=== PATIENT | male | born 1955 | race Caucasian/White ===

== ENCOUNTER 2020-11-15 16:51 | Emergency (ER) | payer OTHER, SELFPAY ==
--- NOTE | 2020-11-15 | ECG_ITS ---
Test Reason : HTN Blood Pressure : / mmHG Vent. Rate : 058 BPM Atrial Rate : 058 BPM P-R Int : 124 ms QRS Dur : 102 ms QT Int : 450 ms P-R-T Axes : 079 061 073 degrees QTc Int : 441 ms Sinus bradycardia Possible Left atrial enlargement Borderline ECG No previous ECGs available Referred By: Broderick Casillas Electronically Signed By:CHAY FUENTES MD
--- NOTE | ~2020-11-15 | XR_ITS ---
EXAMINATION: XR CHEST CLINICAL INFORMATION: High blood pressure COMPARISON: None TECHNIQUE: Frontal portable view of the chest was obtained. 8:08 PM FINDINGS: No significant abnormality is noted involving the heart, lungs, mediastinum, bony thorax or soft tissues. XR/XR chest 1V IMPRESSION: Unremarkable examination.
[2020-11-15 17:12] VITALS: BP 236/114; PULSE 71; RESP 16; TEMP 36.4; O2SAT 99; BMI 27.8
--- NOTE | 2020-11-15 19:42 | PC.NURSE ---
PT IN ROOM WITH C/O HIGH B/P AT A PHARMACY AND WAS ADVISED TO COME HERE FOR EVAL. PT RESTING IN STRETCHER. PT DENIES CP/SOB AT THIS TIME. DENIES HEADACHE OR VISUAL DIST. PT AWAITING FOR MD'S EVAL. WILL CONTINUE TO MONITOR PT.
[2020-11-15 19:44] VITALS: BP 192/96; PULSE 60; RESP 16; O2SAT 99
--- NOTE | 2020-11-15 19:56 | ED.GENADULT ---
HPI - General Adult General Chief complaint: General Medical Stated complaint: High Bp Time Seen by Provider: 11/15/20 19:36 Source: patient Mode of arrival: ambulatory Limitations: no limitations History of Present Illness HPI narrative: 65-year-old male walked into the emergency department to check on his high blood pressure, patient went to [facility] today acquiring COVID testing patient asked to check on his blood pressure and found to be very high at the [facility] patient was instructed to come to the emergency department, patient has no symptoms in particular no headache, no blurry vision, no chest pain, no difficulty breathing, no abdominal pain, no nausea or vomiting. Patient do not have a primary doctor and never had a history of high blood pressure in the past. Related Data Allergies Allergy/AdvReac Type Severity Reaction Status Date / Time No Known Allergies Allergy Verified 11/15/20 19:55 Review of Systems Review of Systems: All other systems are reviewed and are negative Constitutional: Reports as per HPI and Reports no additional constitutional complaints Eyes: Reports as per HPI and Reports no additional eye complaints Reports system reviewed and no additional complaints, except as documented Cardiovascular: Reports as per HPI and Reports no additional cardiovascular complaints Respiratory: Reports as per HPI and Reports no additional respiratory complaints Gastrointestinal: Reports as per HPI and Reports no additional gastrointestinal complaints Genitourinary: Reports no additional female genitourinary complaints Musculoskeletal: Reports no additional musculoskeletal complaints Skin/Breast: Reports system reviewed and no additional complaints, except as docu Psychiatric: Reports no additional psychiatric complaints Endocrine: Reports no additional endocrine complaints Hematologic/Lymphatic: Reports no additional hematologic/lymphatic complaints Allergic/Immunologic: Reports no additional allergic/immunologic complaints Reports system reviewed and no additional complaints, except as documented and Reports Abnormal speech present [facility] Social History Social History Advance Directives: No Advance Directives Information Provided: No Physical Exam Vital Signs: Vital Signs: Last Vital Signs Temp 97.5 F 11/15/20 17:12 Pulse 60 11/15/20 19:44 Resp 16 11/15/20 19:44 BP 192/96 H 11/15/20 19:44 Pulse Ox 99 11/15/20 19:44 Body Mass Index 27.8 Vital signs have been reviewed as appeared to be correct. Blood pressure in the high range.. Heart rate normal. Respiration rate normal. Temperature normal. Oxygen saturation normal. Appearance: Alert. Oriented X3. No acute distress. Head: Normal external exam. Normocephalic. Atraumatic. No [place] signs noted. No raccoon eyes noted Eyes: PERRLA. EOMI. Conjunctiva and sclera normal. Eyelids normal. ENT: TM's Normal. Pharynx normal. Uvula midline. Moist mucous membranes. No trismus noted. No drooling noted. No muffled voice noted. Neck: Normal inspection. Neck supple. FROM. No adenopathy. Thyroid Normal. No meningeal signs. No neck mass noted. CVS: Normal heart rate and rhythm. Heart sound normal. No murmurs noted. Pulses normal throughout. Respiratory: No respiratory distress. Painless inspiration. Breath sounds normal. No wheezes/rales/rhonchi noted. Chest nontender. No accessory muscle usage noted or decreased air movement noted. Abdomen: Soft and nontender. Bowel sounds normal in all 4 quadrants. No distention noted. No organomegaly noted. No visible injury noted. Back: No CVA tenderness. Full range of motion noted. Skin: Skin warm and dry. Normal skin color. Normal skin turgor. No rashes/lesions/lacerations noted. Extremities: No lower extremity edema. Extremities exhibit normal range of motion. Extremities nontender. Neuro: Oriented X 3. No motor deficit. No sensory deficit. Reflexes normal. Medical Decision Making ECG Data Interpretation: Normal sinus, bradycardia at 58 beats per minutes, normal axis deviation, normal intervals no ST-T changes.
[2020-11-15 20:14] LABS: MANUAL DIFF FLAG NO
[2020-11-15 20:18] LABS: Basophils Percent Auto 0.5 % (0-2); Eosinophils Absolute Auto 0.2 X10*3/uL (0.0-0.4); Eosinophils Percent Auto 3.5 % (0-4); Hematocrit 44.1 % (42-52); Hemoglobin 15.2 g/dl (14.0-18.0); Imm Gran Abs Auto 0.01 X10*3/uL (0.00-0.03); Imm Gran Pct Auto 0.2 % (0.0-0.4); Lymphocytes Absolute Auto 1.8 X10*3/uL (1.2-4.9); Lymphocytes Percent Auto 30.5 % (20-40); Mean Corpuscular HGB Conc 34.5 g/dl (31.0-36.0); Mean Corpuscular Hemoglobin 29.7 pg (27.0-33.0); Mean Corpuscular Volume 86.1 fL (80-98); Monocytes Absolute Auto 0.4 X10*3/uL (0.1-1.2); Monocytes Percent Auto 5.9 % (2-11); Neutrophils Absolute Auto 3.6 X10*3/uL (2.0-8.3); Neutrophils Percent Auto 59.4 % (45-73); Platelet Count 198 X10*3/uL (160-400); Red Blood Count 5.12 X10*6/uL (4.60-5.80); Red Cell Distribution Width 13.2 % (11.0-16.0)
[2020-11-15 20:28] VITALS: BP 182/106; PULSE 70
[2020-11-15] MEDS: amLODIPine Besylate 5 MG TABLET PO (20:28)
[2020-11-15 20:30] VITALS: BP 182/106; PULSE 70; RESP 16; O2SAT 99
--- NOTE | 2020-11-15 20:40 | PC.NURSE ---
pt medicated for b/p as per emar. awaiigary for pending lab.
[2020-11-15 20:41] LABS: Alanine Aminotransferase 20 U/L (0-40); Albumin Level 4.6 g/dL (3.5-5.0); Alkaline Phosphatase 73 U/L (39-117); Anion Gap 11 (12-20); Aspartate Amino Transferase 23 U/L (5-37); Bilirubin Direct 0.2 mg/dL (0.0-0.5); Bilirubin Total 0.8 mg/dL (0.0-1.0); Blood Urea Nitrogen 18 mg/dL (9-16); Calcium 9.4 mg/dL (8.4-10.2); Carbon Dioxide 27 mmol/L (22-29); Chloride 103 mmol/L (96-108); Creatinine Clr Calc Pharmacy 84.3; Estimated Glomerular Filt Rate > 60; Glucose Random 97 mg/dL (60-115); Lipase 54 U/L (8-78); Potassium 4.3 mmol/L (3.3-5.1); Sodium 137 mmol/L (135-145); Total Protein 7.2 g/dL (6.5-8.0)
[2020-11-15 20:45] LABS: Troponin-I High Sensitivity 5.5 ng/L (<3.5-35.0)
--- NOTE | 2020-11-15 21:58 | PC.NURSE ---
PT STATES IM FEELING BETTER . AWARE
[2020-11-15 22:49] VITALS: BP 167/90; PULSE 75; RESP 16; O2SAT 99
== END 2020-11-15 23:42 | disposition home or self-care (01) ==
PROVIDERS: Emergency Provider Emergency Medicine
DX: R03.0 Elevated blood-pressure reading, without diagnosis of hypertension (principal)
CPT/HCPCS: 36415; 71045; 80048; 80076; 83690; 84484; 85025; 93005; 99283; 99284

== ENCOUNTER 2024-07-03 15:27 | Emergency (ER) | payer MEDICARE, SELFPAY ==
--- NOTE | ~2024-07-03 | XR_ITS ---
EXAMINATION: XR HAND/WRIST, LEFT CLINICAL INFORMATION: Pain COMPARISON: None available. TECHNIQUE: PA, lateral, and oblique views of the left hand and wrist. FINDINGS: There is a comminuted, mildly displaced distal radius fracture with intra-articular extension. There is a displaced ulnar styloid fracture. Soft tissue swelling at the wrist. The alignment in the hand is intact. XR/XR hand wrist LT IMPRESSION: 1. Comminuted, mildly displaced distal radius fracture with intra-articular extension. 2. Displaced ulnar styloid fracture. Electronically signed by: Carlos Gallegos MD 07/03/2024 04:20 PM [facility]
[2024-07-03 15:38] VITALS: BP 151/97; PULSE 75; RESP 18; TEMP 36.9; O2SAT 97; BMI 26.6
--- NOTE | 2024-07-03 15:39 | ED.EXTPRO ---
HPI - Extremity Problem General Chief complaint: Extremity Injury, Upper Stated complaint: LT wrist injury Time Seen by Provider: 07/03/24 17:05 Source: patient and RN notes reviewed Mode of arrival: ambulatory Limitations: no limitations History of Present Illness ED Provider: Sonia Fitzgerald PA-C [facility] Narrative: This is a 69-year-old male, with a history of hypertension, hyperlipidemia, who presents emergency department with complaints of left wrist pain status post mechanical fall today. Patient states that he was hiking and slipped on wet leaves and fell backwards, went to brace himself left arm. He states he immediately had pain in his left wrist. States that he writes with his left hand. He denies hitting his head or LOC. He is not on blood thinners. Denies history of injury to this wrist in the past. He took Tylenol prior to his arrival. No other complaints or concerns at this time. MD Complaint: extremity pain and extremity swelling Location: left and upper extremity Quality: aching Radiation: none Relieving factors: immobilization and medication Exacerbating factors: range of motion Associated symptoms: denies other symptoms Related Data Previous Rx's ?Medication ?Instructions ?Recorded acetaminophen 500 mg tablet 1,000 mg (2 x 500 mg) PO Q6H PRN 07/03/24 (Tylenol Extra Strength) pain #30 tabs ibuprofen 600 mg tablet 600 mg PO Q6H PRN pain #30 tabs 07/03/24 Allergies Allergy/AdvReac Type Severity Reaction Status Date / Time No Known Allergies Allergy Verified 07/03/24 15:41 Review of Systems Review of Systems: Yes all other systems are reviewed and are negative Constitutional: Constitutional: Reports as per [facility] Past Medical History Attestation statement: The following information was validated with the patient. Social History Social History Advance Directives: No Advance Directives Information Provided: Yes Do you have a plan to hurt others: No Plan Physical Exam Vital Signs: Vital Signs: Last Vital Signs Temp 97.2 F 07/03/24 18:26 Pulse 71 07/03/24 18:26 Resp 16 07/03/24 18:26 BP 131/93 H 07/03/24 18:26 Pulse Ox 96 07/03/24 18:26 O2 Del Method Room Air 07/03/24 18:26 BMI result Body Mass Index 26.6 Const: General: cooperative, comfortable and no acute distress Orientation/consciousness: patient oriented x3 Limitations: no limitations HEENT: Head: Yes normal to inspection, Yes normocephalic and Yes atraumatic Ears: hearing grossly normal bilaterally General nose exam: Normal external nose present Face and sinus: Yes normal facial exam Mouth: Normal oral and palatal mucosa present, oropharynx normal and moist mucous membranes Throat: Yes posterior oropharynx normal Eyes: General: appearance normal, both eyes and all related structures Eyelids: Yes eyelids normal Conjunctivae: conjunctivae normal Sclerae: sclerae normal Pupils: Equal, round and reactive pupils present EOM: EOMs intact bilaterally Neck: Neck: Yes normal visual inspection, Yes full ROM and Yes no lymphadenopathy Lymphatic: no lymphadenopathy noted Chest: Chest palpation & inspection: normal inspection of the chest Resp: Effort & Inspection: normal respiratory effort and able to speak in complete sentences Auscultation: clear to auscultation bilaterally, no crackles, no rales, no rhonchi and no wheezes Cardio: Rate: regular rate Rhythm: regular rhythm Heart sounds: S1 normal heart sound present and S2 normal heart sound present GI: Inspection: Yes normal to inspection Skin: General skin exam: no rashes or lesions noted Trauma: no lacerations or abrasions Wounds: no wounds Neuro: General: patient oriented x3 and moves all extremities Cranial nerves: Yes Equal, round and reactive pupils present Extrem: Other: Left wrist with obvious bony deformity noted at the distal radius and ulna. He has tenderness palpation in this region. Unable to supinate and pronate left wrist and hand secondary to pain. Strong radial pulse. General: Yes normal to inspection Right upper extremity: normal to inspection Left upper extremity: normal to inspection Right lower extremity: normal to inspection Left lower extremity: normal to inspection Medications Administered Discontinued Medications Generic Name Dose Route Start Last Admin Trade Name Freq PRN Reason Stop Dose Admin Ibuprofen 600 mg 07/03/24 18:19 07/03/24 18:23 Ibuprofen 600 Mg Tablet PO 07/03/24 18:20 600 mg ONCE ONE Administration Medical Decision Making Medical Decision Making [facility] Narrative: This is a 84-clee-jmm-male, with hx of HTN, HLD, glaucoma, who presents to the ER with complaints of left wrist pain status post mechanical fall which occurred today. Patient reports slip and fall while hiking today. He states that he slipped on wet leaves and fell backwards onto his outstretched left arm. He immediately had pain. He denies hitting his head or LOC. Strong radial pulse. Obvious bony deformity noted at the distal radius and ulna. Pain with movement. X-ray revealing a comminuted, mildly displaced distal radius fracture with intra-articular extension and displaced ulnar styloid fracture. Discussed with Renetta Lucas PA-C. Patient placed in sugar-tong, and shoulder immobilizer. Given strict return precautions. Also discharged on ibuprofen Tylenol. He will follow-up with orthopedics outpatient Differential Diagnosis Differential Diagnoses: The differential diagnosis associated with the presentation includes Fracture, contusion, sprain, strain Admission/Observation Consideration of admission/observation: Escalation of care including admission/observation considered Lab Data MDM Lab Attestation statement: I reviewed the patient's lab results. Radiology Impression Discussion of test interpretation with radiology: I have reviewed the radiologist's reading. Radiologist Impression: XR/XR hand wrist LT IMPRESSION: 1. Comminuted, mildly displaced distal radius fracture with intra-articular extension. 2. Displaced ulnar styloid fracture. Electronically signed by: Carlos Gallegos MD 07/03/2024 04:20 PM [facility] Dictated By: Carlos Gallegos MD External Record Review External record reviewed: Inpatient record, Office record, Outpatient record, Prior outpatient labs, Prior outpatient radiology, Primary care record and Outside ED record Procedures Orthopedic Splinting/Casting Injury #1: Side: left Upper Extremity Injury Location: upper arm Upper Extremity Immobilizer: sling/shoulder immobilizer Discharge Plan Discharge Clinical Impression: Closed fracture distal radius and ulna Patient Disposition: Home, Self-Care Instructions: Wrist Fracture in Adults (ED) Additional Instructions: You were seen in the emergency department after injuring your left wrist. You have a fracture of the radius and ulna in your wrist. We placed you in a splint. Please keep splint dry. Do not remove splint until you are seen by Orthopedics. Call orthopedic tomorrow to make an appointment. Rest and elevate your arm while in the splint. Use the sling for comfort. Remove sling while sleeping. Alternate between ibuprofen and Tylenol as needed for pain. If any new or worsening symptoms occur including but not limited to worsening pain, increased swelling into your fingertips, loss of sensation in your fingertips, please return. Prescriptions: New ibuprofen 600 mg tablet 600 mg PO Q6H PRN (Reason: pain) Qty: 30 0RF acetaminophen [Tylenol Extra Strength] 500 mg tablet 1,000 mg PO Q6H PRN (Reason: pain) Qty: 30 0RF Referrals: [facility] [Provider Group] Interventions: ED Discharge Assessment Last Done: 07/03/24 18:26 Discharge Date/Time: 07/03/24 18:27 Print Language: Gambian
[2024-07-03 16:03] VITALS: BP 138/84; PULSE 78; RESP 16; TEMP 36.4; O2SAT 96
[2024-07-03 17:56] VITALS: BP 131/93; PULSE 71; RESP 16; TEMP 36.2; O2SAT 96
[2024-07-03] MEDS: Ibuprofen 600 MG TABLET PO (18:23)
[2024-07-03 18:26] VITALS: BP 131/93; PULSE 71; RESP 16; TEMP 36.2; O2SAT 96
== END 2024-07-03 18:27 | disposition home or self-care (01) ==
PROVIDERS: Emergency Provider Emergency Medicine; PCP Student in an Organized Health Care Education/Training Program
DX: S52.502A Unspecified fracture of the lower end of left radius, initial encounter for closed fracture (principal); M25.532 Pain in left wrist; W01.0XXA Fall on same level from slipping, tripping and stumbling without subsequent striking against object, initial encounter; Y93.89 Activity, other specified; Y92.89 Other specified places as the place of occurrence of the external cause; Y99.8 Other external cause status
CPT/HCPCS: 29125; 73110; 73130; 99284

== ENCOUNTER 2024-07-05 14:01 | Outpatient (REF) | payer MEDICARE, SELFPAY ==
--- NOTE | ~2024-07-05 | XR_ITS ---
EXAMINATION: XR WRIST, LEFT CLINICAL INFORMATION: Pain in left wrist. COMPARISON: 07/03/2024 left hand. TECHNIQUE: PA, lateral, and oblique views of the left wrist. FINDINGS: Comminuted, mildly displaced, impacted distal radial fracture with intra-articular extension was also demonstrated on left wrist radiographs of 07/03/2024. Redemonstration of displaced ulnar styloid fracture. Soft tissue swelling at the wrist. XR/XR wrist LT min 3V IMPRESSION: Comminuted, mildly displaced, impacted distal radial fracture, with intra-articular extension was also demonstrated on left wrist radiographs of 07/03/2024. Redemonstration of displaced ulnar styloid fracture. Electronically signed by: Melony Greene MD 07/17/2024 09:07 PM [facility]
== END 2024-07-05 14:02 | disposition home or self-care (01) ==
LOC: HO.HOSX 14:01
PROVIDERS: Visit Provider Orthopaedic Surgery
DX: M25.532 Pain in left wrist (principal); S52.502A Unspecified fracture of the lower end of left radius, initial encounter for closed fracture
CPT/HCPCS: 73110; 99202

== ENCOUNTER 2024-07-05 14:20 | Outpatient (AMB) | payer MEDICARE, SELFPAY ==
--- NOTE | 2024-07-05 14:37 | A.OFFVIS_ITS ---
Vital Signs 07/05/24 14:57 Height 5 ft 11 in Weight 190 lb BMI 26.5 Intake Visit Reasons: FC-Wrist Fracture, left Intake Note: Addison is a 69 yo left hand dominant male who presents today for an ED follow up s/p left wrist injury, DOI 07/03/24. Patient denies numbness but reports tingling at the fingertips. Denies finger locking. He is alternating Tylenol and Ibuprofen PRN with pain relief. Patient thinks he had a fracture on his left small finger years ago. Allergies No Known Allergies Allergy (Verified 07/07/24 10:22) HPI HPI FC-Wrist Fracture, left: Details: Addison is a 69 year old right hand dominant man who presents for a left distal radius fracture, S/P fall while hiking, DOI: 07/03/24. He says he is doing well, and his pain is tolerable. He denies numbness and tingling in his fingers. He denies pain about the elbow. COUNTS INCLUDE 234 BEDS AT THE [facility] Medical History Elevated cholesterol HTN (hypertension) Social History Are you a primary infant caregiver to a significant other at home: No Do you presently have visiting nurse or other home services: No Patient Tobacco Use Status: Never used Tobacco Current occupational status: retired Current occupation: left handed Review of Systems Const All systems reviewed & are unremarkable except as noted in HPI and below Physical Exam Vital Signs: BMI result Body Mass Index 26.5 Const General: cooperative, healthy appearing and no acute distress Orientation/consciousness: patient oriented x3 HEENT Head: Yes normocephalic and Yes atraumatic Eyes EOM: EOMs intact bilaterally Resp Effort & Inspection: normal respiratory effort and able to speak in complete sentences Cardio Jugular venous distension: no JVD Skin General skin exam: turgor normal Rashes: no rashes Neuro General: patient oriented x3 Extrem Other: Evaluation of Left Upper Extremity: The patient is alert, oriented, and in no acute distress Sensation intact to the tips of all digits. Cap refill brisk. He initially had some stiffness in his fingers from being splinted in finger extension. He was able to bring his fingers closed to a weak fist and back into extension without too much difficulty. No tenderness to palpation about the elbow or with proximal forearm squeeze. Good elbow flexion and extension without pain. He does have some swelling and ecchymosis about the distal forearm and into the hand. He has a visible apex volar deformity of the distal radius. No lacerations or evidence of open fracture. Most tender over the distal radius No tenderness along the length of the ulna until we get to the distal ulna. He does have some tenderness over the ulnar styloid. Wrist held in pronation, patient says it is painful to try to supinate. Radiographs: 3 views of the left wrist were taken and viewed by me today in clinic. They show a comminuted, intra-articular distal radius fracture, comminuted, with ~14 degrees apex volar angulation on the lateral view. There is also a minimally displaced ulnar styloid base fracture Psych Appearance: grossly normal Affect: normal affect Attitude: cooperative Assessment & Plan Assessment & Plan (1) Fracture of left distal radius: Code(s): S52.502A - Unspecified fracture of the lower end of left radius, initial encounter for closed fracture Category: Medical (2) Fracture of styloid process of left ulna: Code(s): S52.612A - Displaced fracture of left ulna styloid process, initial encounter for closed fracture Category: Medical Plan Assessment & Plan: 1. Left distal radius fracture, intra-articular, comminuted, displaced with ~14 degrees apex dorsal angulation From a fall, DOI: 07/03/24 2. Left ulnar styloid base fracture, minimally displaced From a fall, DOI: 07/03/24 I educated him about this condition I discussed operative and non-operative treatment options The patient would like to proceed with surgery He will work on gentle finger ROM exercises at home He was fitted for a velcro wrist splint, to be worn until his surgery The risks and benefits of operative treatment were discussed with the patient and the patient wishes to proceed with surgery. These risks include, but are not limited to risk of damage to blood vessels, nerves, tendons, infection, recurrence, incomplete relief of preoperative symptoms, persistent pain, possible need for further surgery and the risks associated with regional blocks and anesthesia. The plan is to take the patient to the operating room sometime on 07/07/24 for the following procedures: 1. Left distal radius ORIF, under general All of the preoperative paperwork including the consent was reviewed today. All the patient's questions were answered. The patient understands that they will be contacted by our doctor of dental surgery soon to schedule this procedure He denies Diabetes, blood thinners, asthma, heart, lung, kidney issues He says he was under the care of a senior network architect and saw him in a proximally 2021. At that time he was told he was fine and would likely lived till he was 89. However when I talked to him about whether he had any shortness of breath or chest pressure he notes that occasionally he will feel like he has some chest pressure but usually after eats a big meal. He says usually belches and feels fine but there is some pressure. We would like for him to try and see his senior network architect tomorrow, as we are scheduling surgery for . It is not clear whether or not he will be able to get in with his senior network architect. Out of an abundance of caution I ordered an EKG to be done across the street. Scribed for Zarina Martinez MD by De Gray, medical records field technician, on 07/05/24 at 3:15 PM, EST. Orders: Orders ECG 12 lead EKG 07/06/24 S52.501A - Unspecified fracture of the lower end of right radius, initial encounter for closed fracture XR wrist LT min 3V 07/05/24 M25.532 - Pain in left wrist Coding Level of Care Code New Pt Level 4 (28735) Diagnoses Fracture of left distal radius S52.502A Fracture of styloid process of left ulna S52.612A
[2024-07-05 14:57] VITALS: BMI 26.5
== END 2024-07-05 15:49 | disposition home or self-care (01) ==
LOC: HO.HOS 14:21
PROVIDERS: PCP Student in an Organized Health Care Education/Training Program; Visit Provider Orthopaedic Surgery
DX: S52.502A Unspecified fracture of the lower end of left radius, initial encounter for closed fracture (principal); S52.612A Displaced fracture of left ulna styloid process, initial encounter for closed fracture
CPT/HCPCS: 99204

== ENCOUNTER → 2024-07-06 10:27 | Outpatient (REF) | payer MEDICARE, SELFPAY ==
--- NOTE | 2024-07-06 10:33 | ECG_ITS ---
Test Reason : PREOP Blood Pressure : / mmHG Vent. Rate : 058 BPM Atrial Rate : 058 BPM P-R Int : 134 ms QRS Dur : 094 ms QT Int : 436 ms P-R-T Axes : 073 066 059 degrees QTc Int : 428 ms Sinus bradycardia Otherwise normal ECG When compared with ECG of 15-NOV-2020 19:10, No significant change was found Referred By: Zarina Martinez Electronically Signed By:CHAY FUENTES MD
== END ==
LOC: HO.CARD 10:27
PROVIDERS: PCP Student in an Organized Health Care Education/Training Program; Visit Provider Orthopaedic Surgery
DX: S52.501A Unspecified fracture of the lower end of right radius, initial encounter for closed fracture (principal)
CPT/HCPCS: 93005

== ENCOUNTER → 2024-07-06 10:33 | Outpatient (BNV) | payer MEDICARE, SELFPAY | PROVIDERS: PCP Student in an Organized Health Care Education/Training Program; Visit Provider Internal Medicine Cardiovascular Disease | DX: R00.1 Bradycardia, unspecified (principal) | CPT/HCPCS: 93010 ==

== ENCOUNTER 2024-07-07 09:20 | Day surgery (SDC) | payer MEDICARE, SELFPAY ==
--- NOTE | 2024-07-07 07:43 | P.OP_ITS ---
Operative Note Operative Note Date of Service: 07/07/24 Narrative: Operative Note Narrative: Preop diagnosis: 1. Left Distal radius fracture, comminuted intra-articular Postop diagnosis: Same Procedure: 1. Left Distal radius fracture open reduction internal fixation, 2 part intra- articular Surgeon: Zarina Martinez MD [place] Operator: Corbin DICKEY Anesthesia: General anesthesia plus regional block Findings: Left distal radius fracture with dorsal ulnar intra-articular fragment Implants: A 3 hole standard Accu Med volar locking plate, with 5 X 2.3 mm locking pegs/screws, and 3 3.5 mm cortical screws Tourniquet time: 56 minutes EBL: 5.0 ml Specimen: None Drains: None Complications: None Disposition: Brought to the recovery room in stable condition Plan: Follow-up in 10-14 days for wound check, suture removal and postop radiographs The patient will be placed in either a short-arm cast or a volar wrist splint. Encouraged no lifting of anything heavier than a cell phone. Please encourage active and passive range of motion of the digits. Follow-up at 4-5 weeks postop for repeat radiographs. Indications: The patient is a 69 year old man with left comminuted intra- articular distal radius fracture . The risks and benefits of operative treatment, including but not limited to risk of damage to blood vessels, nerves, tendons, infection, recurrence, persistent pain or numbness, incomplete resolution of preoperative symptoms, or need for further surgery were discussed with the patient and they wished to proceed with surgery. Procedure: Once consent was obtained patient was brought back to the operating suite and placed in the operating table in a supine position. A regional block was performed by the anesthesia team. Perioperative antibiotics and anesthesia was administered by the anesthesia team. A tourniquet was applied to the proximal aspect of the left upper extremity and the limb was prepped and draped in a standard surgical fashion. The limb was elevated exsanguinated with Esmarch bandage and the tourniquet inflated to 250 mm of mercury for a total tourniquet time of 56 minutes. The FluoroScan was used throughout the case to assess our reduction, and facilitate implant placement. A gentle closed reduction was 1st performed on the patient's left distal radius fracture. I made an 8 cm longitudinal incision over the distal aspect of the flexor carpi radialis tendon. The incision was made through the skin to the subcutaneous tissue using a 15. Blade. Then carefully dissected down to flexor carpi radialis tendon she tenotomy scissors. The FCR tendon sheath was then incised longitudinally using tenotomy scissors under direct visualization. The FCR tendon was then retracted ulnarly. I then made a longitudinal incision in the volar forearm fascia through the floor of FCR tendon sheath using tenotomy scissors under direct visualization. I identified the interval between the radial artery and the flexor tendons. This interval was developed further with my index finger, releasing some of the muscular fibers of the flexor pollicis longus. A dull weatlander retractor was then placed. I then created an ulnarly based flap of the pronator quadratus by releasing the radial and distal edges using a 15. Blade. A Wolf elevator was used to elevate the pronator quadratus from the volar surface of the distal radius. This then revealed to us our distal radius fracture. An open reduction was then performed on our distal radius fracture. I also made sure to reduce the dorsal ulnar articular fragment. I then placed a short standard 3 hole Accu Med volar locking plate on the volar surface of the distal radius. I placed to K-wire through the distal aspect of the plate and into the distal radius. This was assessed using fluoroscopic images. I was satisfied with the placement of our plate. I then placed 5 X 2.3 mm locking screws/pegs in the distal aspect of the plate and distal radius by 1st drilling bicortically with a 1.8 mm drill bit, measuring with a depth gauge, and placing the appropriate length locking screws/pegs. The placement of our plate and screws was then assessed again using fluoroscopic images. The once satisfied with the placement of the volar locking plate and screws on the distal aspect of the distal radius, the plate was then reduced to the shaft of the radius. I then placed 3 X 3.5 mm cortical screws to the proximal aspect of the plate and into the shaft of the radius. This was done by 1st drilling bicortically with a 2.8 mm drill bit, measuring with a depth gauge, and placing the appropriate length screw. Final radiographs were then obtained. The DRUJ was assessed and found to be stable on exam. I was satisfied with our reduction and placement of all implants. At this point the wound was irrigated with normal saline. The pronator q uadratus was reduced back over the volar locking plate using some 3-0 Vicryl suture material. The tourniquet was then deflated and hemostasis was obtained with a brief period of local pressure and bipolar monopolar electrocautery. The subcutaneous layer was then reapproximated using some 4-0 Vicryl suture, and the skin edges were reapproximated using some 5 0 Prolene suture. The wound was then infiltrated with some 1% lidocaine with epinephrine postop pain control. A sterile dressing and a short dorsal splint allowing for active flexion and extension of the digits was applied. The patient appears to have tolerated the procedure well and with no complications. All digits were well vascularized conclusion of the case.
--- NOTE | 2024-07-07 10:31 | MHC.SHP ---
Pre-Procedural Eval Section A - 24 Hr Update-Section A only Date of Service: 07/07/24 The patient is an INPATIENT: No Changes since office visit: No Cold of Flu in the past 2 weeks, No New Medical Problems, No Changes in Medication and No Patient answered all questions The patient has been examined within 24 hours of the surgical procedure. The History & Physical has been completed within 30 days and I have reviewed it.: Yes Section B - Complete if H&P > 30 days Chief Complaint: Unspecified fracture of the lower end of left radi Allergies: Allergies Allergy/AdvReac Type Severity Reaction Status Date / Time No Known Allergies Allergy Verified 07/07/24 10:22 Plan I have reviewed the history and physical and performed a pertinent physical examination on my patient. No changes have occurred unless specified. Time Spent With Patient Time: Total time managing care of this patient today ____ minutes.
[2024-07-07 10:35] VITALS: BP 134/79; PULSE 60; RESP 14; TEMP 36.6; O2SAT 98; BMI 25.8
--- NOTE | 2024-07-07 10:48 | P.CONAN_ITS ---
[facility] Active Problems Active Problems: All Active Problems Fracture of styloid process of left ulna (Acute) Fracture of left distal radius (Acute) Past Medical History Medical History Elevated cholesterol HTN (hypertension) Family History Family history of problems with anesthesia: No Surgical History History of Problems with Anesthesia: No Social History Social History Are you a primary residential child care counselor to a significant other at home: No Do you presently have visiting nurse or other home services: No Patient Tobacco Use Status: Never used Tobacco Use of substances other than those prescribed or required for medical reasons: No Have you been hit, kicked, punched, or otherwise hurt by someone within the past year? If so, by whom?: No Are you DNR?: No Advance Directives: No Advance Directives Information Provided: Yes Recently lost weight without trying: No Nutrition Risks: No Nutritional Risk Poor oral hygiene: No Current occupational status: retired Current occupation: left handed Meds Allergies Allergy/AdvReac Type Severity Reaction Status Date / Time No Known Allergies Allergy Verified 07/07/24 10:22 Home Medications ?Medication ?Instructions ?Recorded ?Confirmed ?Last Taken ?Type amlodipine 5 mg tablet 5 mg PO DAILY 07/05/24 07/07/24 07/07/24 History brimonidine 0.1 % eye drops drp ophthalmic (eye) 07/05/24 Unknown History (Alphagan P) clonazepam 0.25 mg disintegrating 0.25 mg PO DAILY 07/05/24 Unknown History tablet clonazepam 0.5 mg tablet 0.5 mg PO ONCE PRN 07/05/24 Unknown History dorzolamide 22.3 mg-timolol 6.8 ophthalmic (eye) 07/05/24 Unknown History mg/mL eye drops finasteride 5 mg tablet 5 mg PO DAILY 07/05/24 Unknown History hydrochlorothiazide 25 mg tablet 25 mg PO DAILY 07/05/24 Unknown History rosuvastatin 20 mg tablet 20 mg PO BEDTIME 07/05/24 Unknown History Exam Height,Weight and Vital Signs: Height 5 ft 11 in Weight 83.915 kg Last Vital Signs Temp 97.9 F 07/07/24 10:35 Pulse 60 07/07/24 10:35 Resp 14 07/07/24 10:35 BP 134/79 07/07/24 10:35 Pulse Ox 98 07/07/24 10:35 O2 Del Method Room Air 07/07/24 10:35 Airway Mallampati Class: I TM Dist: >3cm Neck ROM: Full Assessment and Plan Assessment Anesthesia Assessment: Anesthesia Plan Discussed and Chart Reviewed Final Anesthetic Review Family History of Problems with Anesthesia: No History of Problems with Anesthesia: No NPO: Yes ASA Class: II Final Preanesthetic Review: No Changes in Pt Med Stat, Meds/Allgs Chart Reviewed and Anes Risks/Benef Reviewed Patient Risk: Low Procedure Risk: Low Anesthetic Plan Anesthetic Plan: GA Disposition: Standard PACU
[2024-07-07] MEDS: Lactated Ringers 1,000 ML 50 ML IVCONT (10:51)
[2024-07-07 12:59] VITALS: BP 124/60; BP 138/64; PULSE 60; PULSE 62; RESP 16; RESP 17; TEMP 36.1; O2SAT 95; O2SAT 97
[2024-07-07 13:04] VITALS: BP 124/65; PULSE 61; RESP 17; O2SAT 95
[2024-07-07 13:14] VITALS: BP 131/65; PULSE 61; RESP 17; O2SAT 95
[2024-07-07 13:29] VITALS: BP 143/79; PULSE 61; RESP 16; O2SAT 96
[2024-07-07 13:48] VITALS: BP 143/78; PULSE 62; RESP 17; TEMP 36.1; O2SAT 96
== END 2024-07-07 14:45 | disposition home or self-care (01) ==
PROVIDERS: PCP Student in an Organized Health Care Education/Training Program; Visit Provider Orthopaedic Surgery
PROC: (CPT 25608; principal; 2024-07-07 11:10)
DX: S52.572A Other intraarticular fracture of lower end of left radius, initial encounter for closed fracture (principal); S52.612A Displaced fracture of left ulna styloid process, initial encounter for closed fracture; W18.30XA Fall on same level, unspecified, initial encounter; Y93.01 Activity, walking, marching and hiking; Y92.9 Unspecified place or not applicable; Y99.9 Unspecified external cause status; E78.00 Pure hypercholesterolemia, unspecified; I10 Essential (primary) hypertension; Z79.899 Other long term (current) drug therapy
CPT/HCPCS: 25608; C1713; J0665; J0690; J1100; J1596; J2003; J2004; J2250; J2405; J2704; J3010

== ENCOUNTER → 2024-07-07 09:20 | Outpatient (BNV) | payer MEDICARE, SELFPAY | PROVIDERS: PCP Student in an Organized Health Care Education/Training Program; Visit Provider Orthopaedic Surgery | DX: S52.572A Other intraarticular fracture of lower end of left radius, initial encounter for closed fracture (principal) | CPT/HCPCS: 25608 ==

== ENCOUNTER 2024-07-19 13:59 | Outpatient (AMB) | payer MEDICARE, SELFPAY ==
--- NOTE | 2024-07-19 14:16 | MHC.OFFVIS ---
Vital Signs 07/19/24 14:30 Height 5 ft 11 in Weight 185 lb BMI 25.8 Intake Visit Reasons: PO LT distal radius ORIF 07/07/24 AR Intake Note: Addison is a 69 yo left hand dominant male who presents today post-operatively s/p left distal radius ORIF done 07/07/[address] Martinez. Patient reports numbness and tingling. Denies finger locking. He is not taking anything for pain. Allergies No Known Allergies Allergy (Verified 07/07/24 10:22) HPI HPI PO LT distal radius ORIF 07/07/24 AR: Details: Addison is a 69 year old right hand dominant man who presents S/P distal radius ORIF, DOS: 07/07/24. S/P fall while hiking, DOI: 07/03/24. He says he is doing well, with minimal pain after surgery. He denies numbness and tingling in his fingers. He denies pain about the elbow. [facility] Medical History Elevated cholesterol HTN (hypertension) Social History Are you a primary cna caregiver to a significant other at home: No Do you presently have visiting nurse or other home services: No Patient Tobacco Use Status: Never used Tobacco Current occupational status: retired Current occupation: left handed Review of Systems Const All systems reviewed & are unremarkable except as noted in HPI and below Physical Exam Vital Signs: BMI result Body Mass Index 25.8 Const General: no acute distress and alert Orientation/consciousness: patient oriented x3 Neuro General: patient oriented x3 Extrem Other: The patient was alert oriented and in no acute distress The incision is healing well with no erythema drainage or evidence of infection. Sutures removed and Steri-Strips applied He can bring his fingers closed to a fist and back into full extension Sensation is intact Cap refill is brisk Resolving ecchymosis Radiographs: 3 views of the left wrist were taken and viewed by me today in clinic. They show a left distal radius fracture with satisfactory fracture alignment and position of all implants. Psych Appearance: grossly normal Affect: normal affect Attitude: cooperative Assessment & Plan Assessment & Plan (1) Fracture of left distal radius: Code(s): S52.502A - Unspecified fracture of the lower end of left radius, initial encounter for closed fracture Category: Medical (2) Fracture of styloid process of left ulna: Code(s): S52.612A - Displaced fracture of left ulna styloid process, initial encounter for closed fracture Category: Medical Plan Assessment & Plan: 1. Left distal radius fracture, intra-articular, comminuted, displaced with ~14 degrees apex dorsal angulation From a fall, DOI: 07/03/24 S/P ORIF, DOS: 07/07/24 2. Left ulnar styloid base fracture, minimally displaced From a fall, DOI: 07/03/24 This has been managed non-operatively The patient appears to be doing well post-operatively I educated him about the post-operative course He was fitted for a velcro wrist splint, to be worn joaquina a cast except for showering, for the next 3 weeks. He can remove this when at home at rest to work on ROM I explained the signs and symptoms of infection I discussed activity modifications, he is to lift nothing heavier than a cellphone for the next 4 weeks, and avoid all impact activities He will perform gentle ROM exercises at home, out of his splint He should avoid any underwater activities at this time He will follow up in 3 weeks with X-rays, 3V L wrist, OOP Scribed for Zarina Martinez MD by De Gray, medical and health services manager, on 07/19/24 at 3:00 PM, EST. Orders: Orders XR wrist LT min 3V Today M25.532 - Pain in left wrist Coding Level of Care Code Global (20290) Diagnoses Fracture of left distal radius S52.502A Fracture of styloid process of left ulna S52.612A
[2024-07-19 14:30] VITALS: BMI 25.8
== END 2024-07-19 15:30 | disposition home or self-care (01) ==
PROVIDERS: PCP Student in an Organized Health Care Education/Training Program; Visit Provider Orthopaedic Surgery
DX: S52.502A Unspecified fracture of the lower end of left radius, initial encounter for closed fracture (principal); S52.612A Displaced fracture of left ulna styloid process, initial encounter for closed fracture
CPT/HCPCS: 99024

== ENCOUNTER 2024-07-19 13:59 | Outpatient (REF) | payer MEDICARE, SELFPAY ==
--- NOTE | ~2024-07-19 | XR_ITS ---
EXAMINATION: XR LEFT WRIST CLINICAL INFORMATION: Pain in left wrist M25.532. COMPARISON: XR Left wrist 08/10/2024. TECHNIQUE: PA, lateral, and oblique views of the left wrist. FINDINGS: Status post ORIF with plate and screws transfixing previously identified comminuted, mildly displaced, impacted distal radial fracture with intra-articular extension. Alignment is improved. Hardware appears intact. Redemonstration of displaced ulnar styloid fracture. Soft tissue swelling at the wrist. XR/XR wrist LT min 3V IMPRESSION: 1. Status post ORIF with plate and screws transfixing previously identified comminuted, mildly displaced, impacted distal radial fracture with intra-articular extension. Alignment is improved. Hardware appears intact. 2. Redemonstration of displaced ulnar styloid fracture. Electronically signed by: Melony Greene MD 09/13/2024 01:08 PM [facility] SLAUGHTER
== END 2024-07-19 14:00 | disposition home or self-care (01) ==
LOC: HO.HOSX 13:59
PROVIDERS: PCP Student in an Organized Health Care Education/Training Program; Visit Provider Orthopaedic Surgery
DX: S52.502D Unspecified fracture of the lower end of left radius, subsequent encounter for closed fracture with routine healing (principal); S52.612D Displaced fracture of left ulna styloid process, subsequent encounter for closed fracture with routine healing
CPT/HCPCS: 73110; 99212

== ENCOUNTER 2024-08-10 08:06 | Outpatient (REF) | payer MEDICARE, SELFPAY ==
--- NOTE | ~2024-08-10 | XR_ITS ---
EXAMINATION: XR WRIST LEFT CLINICAL INFORMATION: Pain in left wrist M25.532. COMPARISON: XR Left wrist 08/10/2024, 07/05/2024, 07/19/2024. FINDINGS: Status post ORIF with plate and screws transfixing previously identified comminuted, mildly displaced, impacted distal radial fracture with intra-articular extension. There is evidence of some interval bridging callus formation, although fracture lines are still faintly visible. Redemonstration of displaced ulnar styloid fracture. Soft tissue swelling at the wrist. XR/XR wrist LT min 3V IMPRESSION: 1. Status post ORIF with plate and screws transfixing previously identified comminuted, mildly displaced, impacted distal radial fracture with intra-articular extension. There is evidence of some interval bridging callus formation, although fracture lines are still faintly visible. 2. Redemonstration of displaced ulnar styloid fracture. Electronically signed by: Melony Greene MD 09/14/2024 06:36 AM [facility]
== END 2024-08-10 08:07 | disposition home or self-care (01) ==
LOC: HO.HOSX 08:06
DX: M25.532 Pain in left wrist (principal); S52.612D Displaced fracture of left ulna styloid process, subsequent encounter for closed fracture with routine healing; S52.502D Unspecified fracture of the lower end of left radius, subsequent encounter for closed fracture with routine healing; Z98.890 Other specified postprocedural states
CPT/HCPCS: 73110; 99212

== ENCOUNTER 2024-08-10 13:31 | Outpatient (AMB) | payer MEDICARE, SELFPAY ==
--- NOTE | 2024-08-10 13:56 | MHC.OFFVIS ---
Vital Signs 08/10/24 14:00 Height 5 ft 11 in Weight 185 lb BMI 25.8 Handedness Left Intake Visit Reasons: PO LT distal radius ORIF 07/07/24 AR Intake Note: Addison is a 69 year old left hand dominant male who presents today post operatively s/p left distal radius ORIF DOS: 07/07/[address] Martinez. Patient reports he has working on ROM at home a little. He expresses a few days ago he has started to remove his splint and start trying to work on wrist ROM. There is still pain with certain ROM like turning a lo to unlock his door and stiffness. He has been moving his fingers around with splint on. He hasn't been taking Tylenol or ibuprofen since a few days after his procedure. Expresses when he gets pain with certain ROM it is his way of telling himself to stop whatever he is doing. Allergies No Known Allergies Allergy (Verified 08/10/24 14:00) HPI HPI PO LT distal radius ORIF 07/07/24 AR: Details: Patient is a 69-year-old male who presents for postoperative evaluation status post left distal radius ORIF, DOS 07/07/2024. Today, the patient reports that he is feeling well, and experiences no pain at baseline. The patient does report that supination of the left wrist at the extremes of range of motion is painful, with motions like turning a lo, but the patient states that he takes this as his cue to not do this motion anymore. Patient states that his range of motion has improved significantly from previous evaluation. Denies any numbness or tingling in the left hand. No other acute complaints or concerns at this time. [facility] Medical History Elevated cholesterol HTN (hypertension) Social History Are you a primary landcare facilitator to a significant other at home: No Do you presently have visiting nurse or other home services: No Patient Tobacco Use Status: Never used Tobacco Current occupational status: retired Current occupation: left handed Review of Systems Const All systems reviewed & are unremarkable except as noted in HPI and below Physical Exam Vital Signs: BMI result Body Mass Index 25.8 Const General: no acute distress and alert Orientation/consciousness: patient oriented x3 Neuro General: patient oriented x3 Extrem Other: The patient was alert oriented and in no acute distress The incision is healing well with no erythema drainage or evidence of infection. He can bring his fingers closed to a fist and back into full extension Patient is able to pronate the left wrist fully Patient is able to supinate to approximately 30 degrees past neutral Patient is able to flex the left wrist to approximately 40 degrees past neutral Patient is able to extend the left wrist to approximately 10 degrees past neutral Sensation is intact Cap refill is brisk Radiographs: 3 views of the left wrist were taken and viewed by me today in clinic. They show a left distal radius fracture with satisfactory fracture alignment and position of all implants. Psych Appearance: grossly normal Affect: normal affect Attitude: cooperative Results Reviewed Results Reviewed: X-rays obtained in the office today and independently reviewed by me, Corbin Maddox PA-C, demonstrate distal radius fracture of the left wrist status post ORIF in satisfactory clinical alignment, with all orthopedic hardware in place, and with evidence of interval bony healing. There is also a minimally displaced ulnar styloid fracture with evidence of interval bony healing. Assessment & Plan Assessment & Plan (1) Fracture of styloid process of left ulna: Code(s): S52.612A - Displaced fracture of left ulna styloid process, initial encounter for closed fracture Category: Medical (2) Fracture of left distal radius: Code(s): S52.502A - Unspecified fracture of the lower end of left radius, initial encounter for closed fracture Category: Medical Plan Assessment & Plan: 1. Left distal radius fracture, intra-articular, comminuted, displaced with ~14 degrees apex dorsal angulation From a fall, DOI: 07/03/24 S/P ORIF, DOS: 07/07/24 2. Left ulnar styloid base fracture, minimally displaced From a fall, DOI: 07/03/24 This has been managed non-operatively The patient appears to be doing well post-operatively I educated him about the post-operative course Patient was informed that he should continue wearing the Velcro wrist splint provided to him at previous visit with daytime activities, but can remove when at rest at home or while sleeping to work on wrist range of motion I explained the signs and symptoms of infection I discussed activity modifications, he is to lift nothing heavier than a cellphone for the next 4 weeks, and avoid all impact activities He will perform ROM exercises at home, out of his splint Patient is also advised referred to occupational therapy for range motion and strengthening hand wrist He will follow up in 4 weeks with X-rays, 3V L wrist, OOP Scribed for Zarina Martinez MD by De Gray, medical receptionist medical assistant, on 07/19/24 at 3:00 PM, EST. Orders: Orders XR wrist LT min 3V Today M25.532 - Pain in left wrist Coding Level of Care Code Global (81798) Diagnoses Fracture of styloid process of left ulna S52.612A Fracture of left distal radius S52.502A
[2024-08-10 14:00] VITALS: BMI 25.8
== END 2024-08-10 14:16 | disposition home or self-care (01) ==
PROVIDERS: PCP Student in an Organized Health Care Education/Training Program
DX: S52.612A Displaced fracture of left ulna styloid process, initial encounter for closed fracture (principal); S52.502A Unspecified fracture of the lower end of left radius, initial encounter for closed fracture
CPT/HCPCS: 99024

== ENCOUNTER 2024-09-06 10:26 | Outpatient (REF) | payer MEDICARE, SELFPAY ==
--- NOTE | ~2024-09-06 | XR_ITS ---
EXAMINATION: XR WRIST 3 OR MORE VIEWS LEFT HISTORY: M25.532 - Pain in left wrist COMPARISON: Comparison is made with the prior examination dated 08/10/2024. FINDINGS: Three views of the left wrist are submitted. Osseous mineralization is normal. The patient is again noted to be status post internal fixation of the distal radius with a side plate and multiple orthopedic screws. The previously seen intra-articular fracture of the distal metaphysis is less visible consistent with healing. Again seen is a fracture of the ulnar styloid. The joint spaces are preserved. The soft tissues are unremarkable. XR/XR wrist LT min 3V IMPRESSION: Healing internally fixed intra-articular fracture of the distal radius. Electronically signed by: Carlos Leslie MD 09/09/2024 08:42 AM [facility]
== END 2024-09-06 10:27 | disposition home or self-care (01) ==
LOC: HO.HOSX 10:26
DX: M25.532 Pain in left wrist (principal); S52.612D Displaced fracture of left ulna styloid process, subsequent encounter for closed fracture with routine healing; S52.572D Other intraarticular fracture of lower end of left radius, subsequent encounter for closed fracture with routine healing; Z98.890 Other specified postprocedural states
CPT/HCPCS: 73110; 99212

== ENCOUNTER 2024-09-06 13:23 | Outpatient (AMB) | payer MEDICARE, SELFPAY ==
--- NOTE | 2024-09-06 13:31 | A.OFFVIS_ITS ---
Vital Signs 09/06/24 13:36 Height 5 ft 11 in Weight 185 lb BMI 25.8 Intake Visit Reasons: PO LT distal radius ORIF 07/07/24 AR-w/xray Intake Note: Addison is a 69 year old left hand dominant male who presents today post operatively s/p left distal radius ORIF DOS: 07/07/[address] Martinez. Patient reports he is doing well, he has been attending OT which has helped improve ROM. States his discomfort has improved as well. Allergies No Known Allergies Allergy (Verified 09/06/24 13:36) HPI HPI PO LT distal radius ORIF 07/07/24 AR-w/xray: Details: Patient is a 69-year-old male who presents for postoperative evaluation status post left distal radius ORIF DOS 07/07/[address] Martinez today, the patient reports that he is feeling much better, and he only experiences some discomfort with the extremes of range of motion of the left wrist. Patient denies any numbness or tingling in the left upper extremity. Reports OT is going very well. No other acute complaints or concerns at this time. [facility] Medical History Elevated cholesterol HTN (hypertension) Social History Are you a primary child day care provider to a significant other at home: No Do you presently have visiting nurse or other home services: No Patient Tobacco Use Status: Never used Tobacco Current occupational status: retired Current occupation: left handed Physical Exam Vital Signs: BMI result Body Mass Index 25.8 Const General: no acute distress and alert Orientation/consciousness: patient oriented x3 Neuro General: patient oriented x3 Extrem Other: The patient was alert oriented and in no acute distress The incision is healing well with no erythema drainage or evidence of infection. He can bring his fingers closed to a fist and back into full extension Patient is able to pronate the left wrist fully Patient is able to supinate to approximately 90 degrees past neutral Patient is able to flex the left wrist to approximately 60 degrees past neutral Patient is able to extend the left wrist to approximately 50 degrees past neutral Sensation is intact Cap refill is brisk Radiographs: 3 views of the left wrist were taken and viewed by me today in clinic. They show a left distal radius fracture with satisfactory fracture alignment and position of all implants. Psych Appearance: grossly normal Affect: normal affect Attitude: cooperative Results Reviewed Results Reviewed: X-rays obtained in the office today and independently reviewed by me, Corbin Maddox PA-C, demonstrate distal radius fracture of the left wrist status post ORIF in satisfactory clinical alignment, with all orthopedic hardware in place, and with evidence of interval bony healing. There is also a minimally displaced ulnar styloid fracture with evidence of interval bony healing. Assessment & Plan Assessment & Plan (1) Fracture of styloid process of left ulna: Code(s): S52.612A - Displaced fracture of left ulna styloid process, initial encounter for closed fracture Category: Medical (2) Fracture of left distal radius: Code(s): S52.502A - Unspecified fracture of the lower end of left radius, initial encounter for closed fracture Category: Medical Plan 1. Left distal radius fracture status post ORIF 2. Left ulnar styloid fracture DOS 07/07/2024 Patient appears to be recovering well postoperatively Patient is educated about the typical recovery course At this time, patient is informed that he should only be wearing the Velcro wrist splint with higher risk activities, and should otherwise be removing the wrist splint to work on wrist range of motion Patient should continue working with occupational therapy Patient was amenable to this plan Patient will follow-up in 4 weeks for [id number] check, sooner with any acute concerns Orders: Orders XR wrist LT min 3V 09/06/24 M25.532 - Pain in left wrist Coding Level of Care Code Global (36830) Diagnoses Fracture of styloid process of left ulna S52.612A Fracture of left distal radius S52.502A
[2024-09-06 13:36] VITALS: BMI 25.8
== END 2024-09-06 13:45 | disposition home or self-care (01) ==
PROVIDERS: PCP Student in an Organized Health Care Education/Training Program
DX: S52.612A Displaced fracture of left ulna styloid process, initial encounter for closed fracture (principal); S52.502A Unspecified fracture of the lower end of left radius, initial encounter for closed fracture
CPT/HCPCS: 99024

== ENCOUNTER 2024-10-14 14:17 | Outpatient (RCR) | payer MEDICARE, SELFPAY ==
--- NOTE | 2024-09-01 13:23 | MHC.OT.OEV ---
[address] [phone] F: [phone] Occupational Therapy Evaluation Patient Name: Addison Posada Diagnosis: (L)distal radius ORIF Date of Onset: 07/03/24 Date of Surgery: 07/07/24 Attending Provider: Corbin Maddox Prescribed Treatment: Follow Up Appointment: History of Current Condition: Patient is a 69 y/o male who was referred to skilled OT for pain and decreased ROM or wrist after a sustaining a mechanical fall while hiking on [place] where he slipped and fell holding his arm out to brace himself which resulted in in (L)distal radius ORIF. Patient reported his PLOF as (I)ADLs/IADLs, he lives alone and is retired from [employer]. He enjoys morning exercises, This Chi, hiking and walking. Significant Medical History: Precautions/Contraindications: Patient Goals: Hand Dominance: Left Observations: QuickDASH Score: Prior Level of Function and Occupation Self Care, Employment, Leisure: (I)ADLs/IADL Retired Morning exercises, Thi [employer], hiking and walking Living Situation, Family and/or Social Support: Lives alone has sisters for support Current Level of Function and Occupation Self Care, Employment, Leisure: Mod(A) ADLs/IADLs Not participating in leisure actives Sleep: (I) Driving: (I) Vision: Balance: Pain Assessment Pain Score: 8 Pain Scale Used: Numeric (0 - 10) Pain Location and Description: 0/10 pain at rest 8/10 during activity sharp Aggravating Factors: Alleviating Factors: none Skin and Soft Tissue Assessment Skin and Soft Tissue: Comments: Nerve assessment Ulnar Nerve: Median Nerve: Radial Nerve: Comments: Sensory Assessment Temperature: Light Touch: Proprioception: Vibration: Comments: Edema Assessment Upper Extremity: Lower Extremity: Comments: edema present in wrist/hand/ fingers Dexterity Assessment Dexterity: Comments: 9 Peg Hole Test= 15.13seconds Special Tests Comments: AROM(PROM) Strength Cervical Cervical Flexion: Cervical Extension: Cervical Lateral Flexion: Cervical Rotation: Comments: Shoulder Flexion: Extension: Abduction: Internal Rotation: External Rotation: Comments: WFL Flexion: Extension: Abduction: Internal Rotation: External Rotation: Comments: WFL Elbow Flexion: Extension: Pronation: Supination: Comments: WFL Flexion: Extension: Pronation: Supination: Comments: WFL Wrist Flexion: 52 Extension: 45 Ulnar Deviation: 15 Radial Deviation: 25 Comments: Flexion: Extension: Ulnar Deviation: Radial Deviation: Comments: Not tested Thumb Thumb CMC Flexion: Thumb MCP Flexion: Thumb IP Flexion: Radial Abduction: Palmar Abduction: Hardin (Kapandji 0-10): Comments: WFL Digits Index MCP: PIP: DIP: Long MCP: PIP: DIP: Ring MCP: PIP: DIP: Small MCP: PIP: DIP: Comments: WFL Gross Grasp: (L)15lbs.; (R)95lbs. Lateral Pinch: Two-Point Pinch: Three-Jaw Morris: Comments: Patient Education Primary Language: Science Intern Required: Current Knowledge: Teaching Method: Education Needs Identified on Evaluation: How did patient/family demonstrate learning? Barriers to Learning: Readiness for Learning: Who was educated? Comments: Plan of Care Assessment: Based on initial OT evaluation patient presents with impaired strength, impaired ROM, impaired coordination, pain and impaired performance during self care tasks. Quick DASH= 45.5% indicating patient's perceived UE impairment during self care tasks. Due to the documented impairments it is recommended that patient receive skilled OT intervention in order for patient to achieve his PLOF of (I) during self care tasks. STG Duration: 2 weeks Short Term Goals: Patient will report 6/10 pain during self care tasks Patient will increased wrist flexion ROM by 5* Patient will increased wrist extension ROM by 5* Patient will be (I) with scar management techniques Patient will be (I) with edema management techniques Patient will increase physical therapy director strength to 20lbs. LTG Duration: 4 weeks [facility] Goals: Patient will be (I) with HEP Patient will have full wrist ROM for ADL performance Patient will report 0/10 pain in (L)wrist Frequency and Duration: The patient will be seen 2x a week for 4 weeks Treatment Plan: Therapeutic Exercise Therapeutic Activity Home Exercise Program Patient Education Desensitization/Sensory Re-ed Edema Control ADL Training Ultrasound NMES Iontophoresis Paraffin Fluidotherapy MHP Cold Packs Joint Mobilization Soft Tissue Mobilization Kinesiotaping Other (see comments) Skilled OT eval and treat Electronically Signed By: HAYLEY Matos/Hortensia, CLT Reviewed/agree with student documentation: Therapist: Please sign and return to therapist, Thank you for your referral.
--- NOTE | 2024-10-06 13:59 | MHC.OT.OP ---
[address] [phone] F: [phone] Occupational Therapy Progress Note Patient Name: Addison Posada Diagnosis: (L)distal radius ORIF Date of Surgery: 07/07/24 Date of Evaluation: 08/30/24 Treatments to Date: 10 Cancellations to Date: No Shows to Date: Subjective: Its getting better Pain Score: 2 Pain Location: (L)wrist Objective Measures: Electrical And Radio Mock Up Mechanic strength= 32lbs. ROM Quick DASH= 20.5% Status: Progressing Assessment: Patient was seen for progress note. At this time patient is making steady progress towards his LTGs as he pain has decreased and his ROM and strength continue to increase. He is compliant with his HEP and performs it daily. He achieved a Quick DASH= 20.5% which has decrease by 50% indicating overall improvement of UE during self care tasks. Patient will continue skilled OT for the remainder of his scheduled treatments to focus on strengthening and advancing his HEP, he will then be discharged from services. Short Term Goals: Patient will report 6/10 pain during self care tasks - MET (3/10 pain) Patient will increased wrist flexion ROM by - MET Patient will increased wrist extension ROM by- PROGRESSING Patient will be (I) with scar management techniques - MET Patient will be (I) with edema management techniques- MET Patient will increase food service sales representatives strength to 20lbs. - 32lbs. Welder Apprentice Combination Goals: Patient will be (I) with HEP - PROGRESSING Patient will have full wrist ROM for ADL performance - PROGRESSING Patient will report 0/10 pain in (L)wrist - PROGRESSING Frequency and Duration: The patient will be seen 2x a week for 2 weeks Treatment Plan: Therapeutic Exercise Therapeutic Activity Home Exercise Program Patient Education Edema Control ADL Training Ultrasound NMES Iontophoresis Paraffin Fluidotherapy MHP Cold Packs Joint Mobilization Soft Tissue Mobilization Kinesiotaping Other (see comments) Skilled OT eval and treat Electronically Signed By: HAYLEY Matos/L, CLT Reviewed/agree with student documentation: Therapist:
--- NOTE | 2024-10-14 14:51 | MHC.OT.DC ---
[address] [phone] F: [phone] Occupational Therapy Discharge Note Patient Name: Addison Posada Provider: Corbin Maddox Diagnosis: (L)distal radius ORIF Date of Surgery: 07/07/24 Date of Evaluation: 08/30/24 Date of Discharge: Treatments to Date: 12 Cancellations to Date: No Shows to Date: Discharge Status: Achieved Goals Improved Function Independent with HEP Discharge Summary: Patient is discharged from skilled OT as he achieved his maximal potential during therapy as he is (I) with his HEP, has increased his ROM and retinal angiographer strength and reports 0/10 pain at rest. Patient was a pleasure to work with. Thank you for your referral. Electronically Signed By: HAYLEY Matos/Hortensia, CLT Reviewed/agree with student documentation: Therapist: Please Sign and return to therapist, thank you for your referral.
== END 2024-10-14 14:52 | disposition home or self-care (01) ==
LOC: HO.OT 14:17
PROVIDERS: PCP Student in an Organized Health Care Education/Training Program
DX: S52.502A Unspecified fracture of the lower end of left radius, initial encounter for closed fracture (principal); S52.612A Displaced fracture of left ulna styloid process, initial encounter for closed fracture
CPT/HCPCS: 97110; 97140; 97165; 97530; 97535